=== PATIENT | male | born 1995 | race Caucasian/White ===

== ENCOUNTER 2017-12-14 14:43 | Emergency (ER) | END 2017-12-14 15:27 | disposition home or self-care (01) ==

== ENCOUNTER 2018-04-28 23:53 | Emergency (ER) | END 2018-04-29 02:53 | disposition left against medical advice (07) ==

== ENCOUNTER 2018-07-16 12:59 | Emergency (ER) | END 2018-07-16 14:42 | disposition home or self-care (01) ==